=== PATIENT | female | born 1970 | race Caucasian/White ===

== ENCOUNTER 2019-04-08 19:19 | Emergency (ER) | payer SELFPAY ==
[~2019-04-08] VITALS: Ht 165.1 cm; Wt 72.6 kg
[2019-04-08 19:27] VITALS: BP 123/72
--- NOTE | 2019-04-08 19:30 | NUR ---
PT AMBULATED TO BED 3. PROVIDED WITH URINE CUP.
--- NOTE | 2019-04-08 19:50 | NUR ---
PT BIB SELF C/O PAIN THROUGH OUT BODY. PT STATES PAIN THROUGH OUT BODY, +TENDERNESS TO SUPRAPUBIC AND LOWER EXTREMITIES BL W/ PALPATION. PT IS MUMBLING WORDS, AND A POOR HISTORIAN. PT IS FOLLOW COMMANDS, BREATHING EQUAL AND UNLABORED; LUNG SOUND CLEAR BL. PT STATES 10/10 PAIN THROUGH OUT BODY, X"MINUTES" PER PT. PT IN BED, BED IN LOWER LOCKED POSITION. ER PHYSIAN AWARE OF PT STATUS. PM: DENIES Addendum: 04/08/19 at 2017 by [email or web address] PT BIB SELF C/O PAIN THROUGH OUT BODY. PT STATES PAIN THROUGH OUT BODY, +TENDERNESS TO SUPRAPUBIC AND LOWER EXTREMITIES BL W/ PALPATION; +DYSURIA. PT IS MUMBLING WORDS, AND A POOR HISTORIAN. PT IS FOLLOW COMMANDS, BREATHING EQUAL AND UNLABORED; LUNG SOUND CLEAR BL. PT STATES 10/10 PAIN THROUGH OUT BODY, X"MINUTES" PER PT. PT IN BED, BED IN LOWER LOCKED POSITION. ER PHYSIAN AWARE OF PT STATUS. PMH: INOCENCIA
[2019-04-08] MEDS ORDERED: NACL 0.9% 1,000 ML IV ONE (19:55)
--- NOTE | 2019-04-08 20:05 | NUR ---
PT REFUSING IV START AND FLUID ADMINISTRATION AT THIS TIME. PT EDUCATED PROCEDURE, ER PHYSICIAN AWARE.
[2019-04-08 20:24] LABS: BASOPHILS # (AUTO) 0.1 K/uL (0.00-0.22); BASOPHILS % (AUTO) 0.6 % (0.0-2.0); EOSINOPHILS # (AUTO) 0.1 K/uL (0-0.4); EOSINOPHILS % (AUTO) 0.5 % (0.0-4.0); HEMATOCRIT 33.2 % (36-48); HEMOGLOBIN 11.1 g/dL (12.0-16.0); LYMPHOCYTES # (AUTO) 1.2 K/uL (2.5-16.5); LYMPHOCYTES % (AUTO) 12.7 % (20.5-51.1); MEAN CORPUSCULAR HEMOGLOBIN 28 pg (27-31); MEAN CORPUSCULAR HGB CONC 33 g/dL (33-37); MEAN CORPUSCULAR VOLUME 83.9 fL (80-94); MONOCYTES # (AUTO) 0.8 K/uL (0.8-1.0); MONOCYTES % (AUTO) 8.7 % (1.7-9.3); NEUTROPHILS # (AUTO) 7.4 K/uL (1.8-7.7); NEUTROPHILS % (AUTO) 77.5 % (42.2-75.2); PLATELET COUNT (AUTO) 266 K/uL (140-450); RED BLOOD CELL COUNT(AUTO) 3.95 MIL/uL (4.20-5.40); RED CELL DISTRIBUTION WIDTH 14.3 % (11.6-13.7); WHITE BLOOD COUNT (AUTO) 9.6 K/uL (4.8-10.8)
[2019-04-08 20:32] LABS: ANION GAP 12.4 (8-16); CREATININE 1.1 mg/dL (0.6-1.3); POTASSIUM 3.4 mmol/L (3.5-5.1)
[2019-04-08 20:38] LABS: ALBUMIN 2.9 g/dL (3.4-5.0); TOTAL BILIRUBIN 0.6 mg/dL (0.0-1.0)
[2019-04-08 20:45] LABS: APPEARANCE,URINE CLEAR (CLEAR); BILIRUBIN,URINE NEGATIVE (NEGATIVE); BLOOD, URINE NEGATIVE (NEGATIVE); COLOR,URINE YELLOW (YELLOW); LEUKOCYTE ESTERASE ,URINE TRACE (NEGATIVE); NITRITE, URINE NEGATIVE (NEGATIVE); UGLUCOSE NEGATIVE (NEGATIVE)
[2019-04-08] MEDS ORDERED: cefTRIAXone 1,000 MG in LIDOCAINE MPF 1% - 5 mL VIAL 2.1 ML IM ONE (20:50)
[2019-04-08 20:52] LABS: BARBITURATE, URINE NEG. ng/ml (NEG <=200); BENZODIAZEPINE, URINE NEG. ng/mL (NEG <=200); CANNABINOID, URINE NEG. ng/mL (NEG <=50); COCAINE, URINE NEG. ng/mL (NEG <=300); OPIATE, URINE NEG. ng/mL (NEG <=2000); PHENCYCLIDINE SCREEN,URINE NEG. ng/mL (NEG <=25)
[2019-04-08 20:56] LABS: RBC,URINE 0-5 /HPF (0-5)
--- NOTE | 2019-04-08 21:02 | NUR ---
X-RAY AT BEDSIDE.
--- NOTE | 2019-04-08 21:05 | NUR ---
PT REFUSING TO HAVE X-RAY DONE, OR ROCEPHINE MEDICATION ADMINISTERED AT THIS TIME. PT STATES "I REFUSE". ER PHYSICIAN AWARE.
--- NOTE | 2019-04-08 21:10 | NUR ---
PT GETTING DRESSED, PT INCOURAGED NOT TO LEAVE.
--- NOTE | 2019-04-08 21:15 | NUR ---
PT AMBULATED W/ STEADY GAIT OUT OF THE ER, INCOURAGED TO STAY; PT REFUSED. ER PHYSICIAN AWARE.
--- NOTE | 2019-04-08 21:15 | NUR ---
PT LEFT W/O DISCHARGE INSTRUCTIONS.
[2019-04-08 21:28] VITALS: BP 118/68
== END 2019-04-08 21:15 | disposition left against medical advice (07) ==
LOC: MED 19:19
DX: N39.0 Urinary tract infection, site not specified (principal); Z59.0 Homelessness
CPT/HCPCS: 36415; 80053; 80305; 81001; 81025; 85025; 87086; 99283

== ENCOUNTER 2019-04-12 03:41 | Emergency (ER) | payer SELFPAY ==
[~2019-04-12] VITALS: Ht 165.1 cm; Wt 63.5 kg
[2019-04-12 03:42] VITALS: BP 134/80
--- NOTE | 2019-04-12 03:42 | NUR ---
TO BED # 11 AMBULATORY
--- NOTE | 2019-04-12 04:03 | NUR ---
PATIENT LEFT WITHOUT BEING SEEN BY DR. SANCHEZ. NO FURTHER CARE PROVIDED FOR PATIENT.
== END 2019-04-12 04:03 | disposition left against medical advice (07) ==
LOC: MED 03:41
DX: R52 Pain, unspecified (principal); Z53.21 Procedure and treatment not carried out due to patient leaving prior to being seen by health care provider